=== PATIENT | female | born 1970 | race Caucasian/White ===

== ENCOUNTER → 2016-11-29 | Outpatient (CLI) | payer OTHER ==
[~2016-11-29] MED LIST: AMBIEN10 MG PO; CLEOCIN HCL300 MG PO; CUBICIN (NON-F500 MG IV; DILAUDID 4MG4 MG; EFFEXOR XR75 MG PO; FLORASTOR250 MG PO; NIFEREX-150) (150 MG PO; PERCOCET 5-3251 EACH PO; TYLENOL325 MG PO; XANAX0.5 MG PO; ZOLOFT100 MG PO
== END | disposition disaster alternative care site (69) ==
LOC: GRAD 07:57
DX: M54.40 Lumbago with sciatica, unspecified side (principal); M51.26 Other intervertebral disc displacement, lumbar region; M54.5 Low back pain; M48.06 Spinal stenosis, lumbar region; M47.896 Other spondylosis, lumbar region

== ENCOUNTER → 2016-12-04 | Outpatient (CLI) | payer OTHER ==
--- NOTE | ~2016-12-04 | ECHO ---
Transthoracic Echocardiography Report (TTE) Demographics Patient Name JAMEE GUERRERO Date of Study 12/04/2016 Patient Number [id number] Visit Number [id number] Date of 1970 Room Number Gender Female Number Age 46 year(s) Referring Daniel Shawna Brenner MD Hemodialysis Lab Technician Alden T, [facility] Physician Jacqui Physician Interpreting Arcelia Ponce Medical Record Specialist Physician Supervising Ordering Arcelia Ponce MD/MLP Physician Nurse Stress Middleware Administrator Conclusions Summary The estimated left ventricular ejection fraction is 55-60%. Abnormal septal motion due to LBBB. Procedure Type of Study TTE procedure:2D Echocardiogram, M-Mode, Doppler , Color Doppler. Procedure Date Date: 12/04/2016 Start: 03:29 PM Study Location: Echo Lab Technical Quality: Adequate visualization Indications:Pre surgical clearance. Appropriate Use Criteria: 9 Patient Status: Routine HR: 74 bpm BP: 135/72 mmHg M-Mode/2D Measurements LV Diastolic Dimension: 4.58 cm LV Systolic Dimension: 3.19 cm LV Septum Diastolic: 0.85 cm LV PW Diastolic: 0.93 cm AO Root Dimension: 2.1 cm AV Cusp Separation: 1.4 cm RV Diastolic Dimension: 2.41 cm LA Dimension: 3.3 cm LVOT: 1.8 cm RV Base: 2.17 cm RV Mid: 1.97 cm RV Length: 4.8 cm TAPSE: 2.54 cm TDI-S': 16.9 cm/s Doppler Measurements TR Velocity:2.09 m/s TR Gradient:17.47 mmHg PV Peak Velocity: 1.32 m/s Estimated RAP:3 mmHg PV Peak Gradient: 6.97 mmHg Estimated RVSP: 20 mmHg Estimated PASP: 20.47 mmHg Findings Left Ventricle Normal left ventricle size. Abnormal septal motion due to LBBB. Right Ventricle Normal right ventricle structure and function. Left Atrium Normal left atrial size. Right Atrium Normal right atrial size. Mitral Valve Normal mitral valve structure and function. Aortic Valve Normal aortic valve structure and function. Tricuspid Valve Trivial tricuspid regurgitation by color Doppler. Pulmonic Valve Trivial pulmonic valve regurgitation by color Doppler. Pericardial Effusion No evidence of pericardial effusion. Pleural Effusion No evidence of pleural effusion. Contractility Score LV regional wall motion:(0-Non visualized 1-Normal 2-Hypokinesis 3-Akinesis 4-Dyskinesis 5-Aneurysm) Signature dtt: WEI LEAHY dtd: 12/04/16 1529 Physician Self Edit
== END | disposition disaster alternative care site (69) ==
LOC: GCAR 14:51
DX: Z01.818 Encounter for other preprocedural examination (principal); I44.7 Left bundle-branch block, unspecified

== ENCOUNTER 2016-12-06 06:03 | Day surgery (SDC) | payer OTHER ==
[~2016-12-06] VITALS: Ht 154.9 cm; Wt 70.1 kg
--- NOTE | ~2016-12-06 | DS ---
PATIENT'S NAME: JAMEE GUERRERO [facility] AGE: 46 Y [address] ROOM: [address] [address] LOCATION: [facility] ADMIT DATE: 12/06/2016 Discharge Summary DISCHARGE DATE: 12/09/2016 FAMILY PHYSICIAN: Shawna Sanchez MD ATTENDING PHYSICIAN: Deborah Childs REASON FOR ADMISSION: The patient was a scheduled admission for an elective procedure. The procedure was left L5-S1 microdiskectomy. The patient had presented with clinical and radiological findings consistent with a left S1 radiculopathy from a herniated disk. TREATMENT RENDERED: The patient was taken to the operating room on December 06, 2016 and underwent a left L5-S1 microdiskectomy. The procedure was uncomplicated. The patient's postoperative course was uneventful. She had some numbness down her leg, but this improved by the time she was ready for dismissal. She also had some low hemoglobin which was investigated by her primary care provider and will be followed up in the outpatient. Overall, the patient did well and was ready for dismissal by December 09, 2016. She was discharged home on that day with arrangements to follow up in the Neurosurgery Clinic. FINAL DIAGNOSIS: Lumbar disk herniation status post lumbar microdiskectomy. DEBORAH CHILDS MD CNO/modl /[id number] d: 12/14/16 0108 t: 12/16/16 2207, DISCHARGE SUMMARY
--- NOTE | ~2016-12-06 | OR ---
PATIENT'S NAME: JAMEE GUERRERO [facility] AGE: 46 Y [address] ROOM: [address] [place], [place] [address] LOCATION: [facility] ADMIT DATE: 12/06/2016 OR/Procedure Report DISCHARGE DATE: 12/09/2016 FAMILY PHYSICIAN: Shawna Sanchez MD ATTENDING PHYSICIAN: Deborah Childs SURGEON: Deborah Childs MD LAMP SHADE SEWER: Michelle Hollingsworth. DATE OF PROCEDURE: 12/06/2016 PREOPERATIVE DIAGNOSIS: Lumbar disk herniation. POSTOPERATIVE DIAGNOSIS: Lumbar disk herniation. PROCEDURES PERFORMED: 1. Left L5-S1 hemilaminotomy, medial facetectomy, and foraminotomy with diskectomy. 2. Use of operative microscope. ANESTHESIA: General. ANESTHESIA PROVIDER: Amadou Wood M.D. HISTORY: The patient is a 46-year-old female with complaints of lower back and left leg pain. MRI showed a large left L5-S1 disk herniation. The patient had had a right L5-S1 disk herniation with diskectomy 2 years ago. With the return of her symptoms on the left side, imaging studies were done and it showed another large disk herniation at this time on the left side. Given the large size of the disk, the decreased left ankle jerk, and the level of the patient's pain, surgery was recommended. The above procedure, benefits, and risks were discussed with the patient; and with her consent, she was brought to the operating room for surgery. We briefly talked about the need for spinal fusion, but I felt that the diskectomy would be sufficient in itself to remove the patient's pain without having to sacrifice the disk segments. PROCEDURE IN DETAIL: In the operating room, the patient was placed in a supine position. Anesthesia was induced. She was intubated. She was then rolled to a prone position on a Migue table taking care to protect all pressure points. The incision was marked out corresponding to the previous incision used for her right L5-S1 diskectomy. Self-retaining retractors were placed. The paraspinous muscles were dissected off the spinous processes of L5 and S1 vertebrae bilaterally. Self-retaining retractors were placed. We could see where the hemilaminotomy had been performed on the right side, but this time we were working on the left side. Intraoperative x-ray was obtained to confirm our level. PATIENT'S NAME: JAMEE GUERRERO [facility] AGE: 46 Y [address] ROOM: [facility] [place], [place] [address] LOCATION: [facility] ADMIT DATE: 12/06/2016 OR/Procedure Report DISCHARGE DATE: 12/09/2016 FAMILY PHYSICIAN: Shawna Sanchez MD ATTENDING PHYSICIAN: Deborah Childs The adjacent edges of the left L5 and S1 laminae were trimmed down with Kerrison rongeur and drill. The medial facet was also drilled down. The ligamentum flavum was carefully removed. The microscope was brought in at this point and under microscopic vision, the epidural space was explored. The disk was in the axilla of the left S1 nerve root, i.e., on the medial side of the nerve rather than on the lateral side of the nerve as is more usually the case. Working very carefully, the disk was incised in the axilla of the nerve and disk material was removed. After a few sizable pieces of disk had been removed, it was then possible to mobilize the nerve root towards the midline and work on the shoulder of the nerve where some of the disk herniation was also present. Further disk was removed from the shoulder of the nerve. The down-pushing curette was used to push down disk material into the disk space. The pituitary rongeur was used to remove the disk. Diskectomy continued until the nerve root could be seen completely free all around. Foraminotomy was also performed to ensure that there was no narrowing of the foramen and the nerve root exited. Having completed the diskectomy, the edges of the laminectomy were waxed with bone wax. Hemostasis was achieved. Irrigation was used to wash out the debris. Ropivacaine was placed in the epidural space. The incision was closed in layers using appropriate suture materials. A sterile dressing was applied. The patient was rolled back to supine position. Her anesthesia was reversed. She was extubated and taken to the recovery room to complete her recovery. I was present at and performed every aspect of this procedure, assisted at some stages by operating room nurses. There were no apparent intraoperative complications. Swabs, needles, and instruments were all accounted for at the end of the case. Estimated blood loss was less than 50 mL. There was no reason for blood transfusion. I expect the patient to benefit immensely from this procedure. MD HÉCTOR EDWARDS/leandro /[id number] d: 12/13/162215 t: 12/16/16 2204, OPERATIVE SUMMARY
[~2016-12-06 06:03] MED LIST changes: -CLEOCIN HCL300 MG PO; -CUBICIN (NON-F500 MG IV; -FLORASTOR250 MG PO; -NIFEREX-150) (150 MG PO; -TYLENOL325 MG PO
[2016-12-08 05:31] LABS: HEMATOCRIT 27.3 % (33.0-46.0); HEMOGLOBIN 8.7 g/dL (10.0-15.0)
[2016-12-09 08:29] LABS: HEMATOCRIT 28.8 % (33.0-46.0); HEMOGLOBIN 9.3 g/dL (10.0-15.0)
== END 2016-12-09 17:45 | disposition disaster alternative care site (69) ==
LOC: G3N 06:03 → GSDC 06:03 → UNDOADMIN 06:03 → G3N 11:30 → EDSTATUS 15:00 → G3N 12-09 17:45 → GSDC 12-09 17:45
PROVIDERS: Family Medicine; Neurological Surgery
PROC: 0SB20ZZ Excision of Lumbar Vertebral Disc, Open Approach (ICD-10-PCS; principal; 2016-12-06)
PROC: 01NB0ZZ Release Lumbar Nerve, Open Approach (ICD-10-PCS; 2016-12-06)
DX: M51.17 Intervertebral disc disorders with radiculopathy, lumbosacral region (principal); M48.07 Spinal stenosis, lumbosacral region; Z87.19 Personal history of other diseases of the digestive system; Z98.890 Other specified postprocedural states
CPT/HCPCS: J0690; J1100; J1170; J2001; J2250; J2405; J2795; J3010; J7030; J7120

== ENCOUNTER 2016-12-18 22:02 | Inpatient (IN) | payer OTHER ==
[~2016-12-18] VITALS: Ht 154.9 cm; Wt 68.7 kg
--- NOTE | ~2016-12-18 | OR ---
PATIENT'S NAME: JAMEE GUERRERO [facility] AGE: 46 Y [address] ROOM: [place] [address] [place] [facility] [place]: 12/18/2016 OR/Procedure Report DISCHARGE DATE: FAMILY PHYSICIAN: Shawna Sanchez MD ATTENDING PHYSICIAN: Deborah Childs SURGEON: Darrel Montalvo MD CLINICAL DOCUMENT IMPROVEMENT EDUCATOR: DATE OF PROCEDURE: 12/24/2016 PREOPERATIVE DIAGNOSES: 1. Anemia. 2. History of gastric ulcers. POSTOPERATIVE DIAGNOSIS: Small area of submucosal swelling in the antrum, otherwise normal scope. PROCEDURE PERFORMED: EGD. ANESTHESIA: MAC. SPECIMEN: None. REASON FOR PROCEDURE: The patient is a 46-year-old female, who has a remote history of gastric ulcers. She has been profoundly anemic recently with some mild drop in hemoglobin. She has also been dealing with some chronic back issues. Hemoccults were negative. An upper endoscopy was requested. FINDINGS: Overall, things look quite normal. There is a couple of centimeter area in the antrum that there seemed to be some submucosal swelling. This did flatten out some with full insufflation, but did not completely resolve. It looked like maybe there was some scarring from a healed ulcer in this area, but nothing that looked like a bleeding source and there was no stigmata of bleed in the stomach. Duodenum was otherwise normal. PROCEDURE IN DETAIL: The patient was taken to the endoscopy suite and placed in the left lateral decubitus position. After appropriate monitors were in place, a bite block was placed between her teeth. Anesthesia provided sedation, the gastroscope was advanced through the bite block and the esophagus was intubated under direct visualization. The esophagus was not dilated. There were no strictures or masses. The GE junction was smooth and regular without evidence of esophagitis. No blood was noted anywhere. Hiatal hernia was not seen. The stomach was insufflated and inspected. There was little green bile in the stomach, but no evidence of new or old blood. There was just a vague nonspecific circular swelling about 2 cm in diameter in the pre-pyloric area. This was more of a submucosal area. Overall, the mucosa PATIENT'S NAME: JAMEE GUERRERO [facility] AGE: 46 Y [address] ROOM: [place] [id number] [place] [facility] [place] DATE: 12/18/2016 OR/Procedure Report DISCHARGE DATE: FAMILY PHYSICIAN: Shawna Sanchez MD ATTENDING PHYSICIAN: Deborah Childs overlying this spot seemed normal. There was a little bit of scarring that may have been a previous healed ulcer, but nothing that really stood out. This did seem to flatten out somewhat as we continue to insufflate, but did not completely go away. I did photograph the area. The port channels as well as the first, second, and third portions of the duodenum were all normal. The scope was withdrawn back in the stomach and retroflexed. The scope was then gradually withdrawn. POSTPROCEDURE PLAN: The patient will be discharged home when awake and alert. I did not see any evidence of bleeding in the stomach or anything to account for her chronic anemia. She did have this unusual swelling area, but it did not really seem to be anything of clinical significance to me. I think with the amount of stress she is under with her back though and her previous history of ulcers, I would keep her on some acid suppression therapy for the time being. We will continue to follow the anemia. This may be related to other issues. She may want to consider a colonoscopy when she has fully recovered from the back problems. MD SANDRA GREGORY/leandro /[id number] d: 12/24/16 1249 t: 12/30/16 1716, OPERATIVE SUMMARY
--- NOTE | ~2016-12-18 | DS ---
PATIENT'S NAME: JAMEE GUERRERO [facility] AGE: 46 Y [address] ROOM: [place] [address] LOCATION: [facility] [place] ADMIT DATE: 12/18/2016 Discharge Summary DISCHARGE DATE: 12/28/2016 FAMILY PHYSICIAN: Shawna Sanchez MD ATTENDING PHYSICIAN: Deborah Childs REASON FOR ADMISSION: The patient was seen in the emergency room on December 18, 2016 with wound infection. The patient has had a left L5-S1 microdiskectomy on December 06, 2016, and was doing well until a few days before her re-admission when she noticed that the wound appeared to be infected. On examination, the incision was reddened and swollen, and there were a couple of hairs extracted from the incision itself. The patient also had an elevated white count and high temperature, and generally looked unwell. TREATMENT RENDERED: The patient was taken to the operating room on the night of her admission to hospital, and underwent incision and drainage of her wound. The procedure was uneventful. She was started on antibiotics per direction by Infectious Diseases team. The wound later grew MRSA, and the antibiotics were adjusted to cover this infection. While in hospital, the patient was found to be anemic as she had already presented with low hemoglobin even before the hospitalization, and was being scheduled for elective investigation to find out the cause of this. We, therefore, took advantage of her being in hospital and expedited the investigations. She was seen by Dr. Montalvo, who performed endoscopy and really did not see any specific source of the bleeding. The patient was also seen by [employer]PATCHER, Dr. Yang, and Dr. Yang recommended that the patient be seen in the office to perform endometrial biopsy. The appointment for this has been scheduled. Her incision continued to improve, and her pain got better. By the 28 of December, she was well enough to be discharged, and was discharged home on that day. At this time, her wound was just about completely healed, and her pain was well controlled. FINAL DIAGNOSES: 1. Lumbar wound infection. 2. Anemia. PATIENT'S NAME: JAMEE GUERRERO [facility] AGE: 46 Y [address] ROOM: [place] [address] LOCATION: [facility] [place] ADMIT DATE: 12/18/2016 Discharge Summary DISCHARGE DATE: 12/28/2016 FAMILY PHYSICIAN: Shawna Sanchez MD ATTENDING PHYSICIAN: Deborah Childs MD CNO/modl /[id number] CC: Shawna Sanchez MD d: 01/06/17 0412 t: 01/07/17 1931, DISCHARGE SUMMARY
--- NOTE | ~2016-12-18 | ER ---
PATIENT'S NAME: JAMEE GUERRERO [facility] AGE: 46 Y [address] ROOM: [place] [address] [place] [facility] DATE: 12/18/2016 ER/Outpatient Report DISCHARGE DATE: FAMILY PHYSICIAN: Shawna Sanchez MD ATTENDING PHYSICIAN: Deborah Childs Time of Arrival: 2204 hours. Time of Evaluation: 2215 hours. CHIEF COMPLAINT: Surgical wound infection. HISTORY OF PRESENT ILLNESS: This is a 46-year-old female who presents to the ER with her who states she is not feeling well. The patient had a diskectomy done by Dr. Childs on December 06. She states she had been doing okay, was having some pain but was trying to tough it out. She has then noticed that her incision site was red, so she went to be seen by her primary care physician Dr. Sanchez. Dr. Sanchez did contact Dr. Childs today. They did start her on clindamycin and she did have one dose of that. She states her symptoms have worsened this evening. She started having fever or chills. She has felt nauseated. She does not know if she has been having any drainage out of her incision site, but it is very tender to palpate. She denies any cough. No chest pain. No shortness of breath. No diarrhea. No headache. She just feels achy all over her body. She does have some left-sided numbness to the back of her leg post surgery, but she states that she is having some pain in her posterior calf of her left leg and that she did have that evaluated done at [facility] today. They did a Doppler of her leg which was negative. ALLERGIES: NO KNOWN ALLERGIES. MEDICATIONS: Please see medication list in nurse's notes. PAST MEDICAL HISTORY: Anxiety, depression. PAST SURGICAL HISTORY: Diskectomy. SOCIAL HISTORY: Denies smoking, drug, or alcohol use. REVIEW OF SYSTEMS: PATIENT'S NAME: JAMEE GUERRERO [facility] AGE: 46 Y [address] ROOM: [place] [address] [place] [facility] DATE: 12/18/2016 ER/Outpatient Report DISCHARGE DATE: FAMILY PHYSICIAN: Shawna Sanchez MD ATTENDING PHYSICIAN: Deborah Childs All systems were reviewed and were negative with the exception of those discussed in the HPI. PHYSICAL EXAMINATION: VITAL SIGNS: Height 5 feet 1 inch stated, weight 69.4 kg taken, blood pressure is 149/62, pulse 117, respirations 16, temperature 101.7 degrees tympanically, saturations 95% on room air. Hemant Coma Score is 15. GENERAL: Alert, calm, well-developed female, in mild to moderate distress. HEENT: Head: Normocephalic. She does display moist mucous membranes. Eyes: Pupils were equal and reactive to light. NECK: Supple. No lymphadenopathy. LUNGS: Clear to auscultation bilaterally. HEART: Tachycardic. Normal rhythm. ABDOMEN: Soft, it is nontender. She has good bowel sounds throughout. EXTREMITIES: No clubbing or cyanosis. She does have her normal range of motion of her upper and lower extremities. SKIN: She has an incision to her lumbar spine. There is erythema around the incision site. The suture lines do have a little bit of dried purulent drainage around them. There is some slight induration to the posterior aspect of the incision. It is very tender to palpate. It is slightly warm to palpate as well. NEURO: Cranial nerves 2 through 12 grossly intact. Gait is steady without assistance. LABORATORY DATA: CBC: White count is 19.1, hemoglobin is 10.8, platelets 388, ANC is 15.6, sedimentation rate is 65. CMS: Sodium 135, potassium 3.8, BUN 5, creatinine 0.9, glucose is 111, CRP is 16, lactate is 1.2, procalcitonin is less than 0.05. Urinalysis is negative for any infection. She does have trace of blood in her urine. IMPRESSION: Systemic inflammatory response syndrome secondary to postop wound infection. ASSESSMENT AND PLAN: I did speak with Dr. Ayers. We did start an IV and did obtain two sets of blood cultures on the patient. We did start normal saline at 30 mL/kg here in the emergency room. We gave her 25 mcg of fentanyl x2 here in the emergency room for her discomfort. Dr. Childs also obtained wound cultures of the incision site prior to admission to the hospital. I did speak with Dr. Martinez regarding the patient and I also spoke with Dr. Childs. Dr. Childs will be coming in to evaluate the patient and he will be assuming the patient's care at this time for admission to the hospital. The patient and patient's understand and agrees with care. PATIENT'S NAME: JAMEE GUERRERO [facility] AGE: 46 Y [address] ROOM: [place] [address] LOC[place] [facility]MIT DATE: 12/18/2016 ER/Outpatient Report DISCHARGE DATE: FAMILY PHYSICIAN: Shawna Sanchez MD ATTENDING PHYSICIAN: Deborah Childs N FELIPE BALLARD PA-C FOR MD EYNY HYDE/modl /[id number] d: 12/19/16 0110 t: 01/01/17 1817, OUTPATIENT REPORT
--- NOTE | ~2016-12-18 | CON ---
PATIENT'S NAME: VANNESA GUERRERO [facility] AGE: 46 Y [address] ROOM: [place] [address] [place] [facility] [place]: 12/18/2016 Consultation DISCHARGE DATE: FAMILY PHYSICIAN: Shawna Sanchez MD ATTENDING PHYSICIAN: Deborah Childs DATE OF CONSULTATION: 12/23/2016 REFERRING PHYSICIAN: Deborah Childs MD REASON FOR CONSULTATION: Anemia. HISTORY OF PRESENT ILLNESS: Vannesa Guerrero is a 46-year-old female who underwent a L5-S1 microdiskectomy on December 06, 2016. The patient was released home but then was readmitted on December 18 with a postoperative wound infection. The patient's hemoglobin today is 7.4. Dr. Childs requested a general surgery consultation for possible EGD as an inpatient. The patient states that her appetite has not been good for about one month. She denies any specific pain or nausea. No difficulty eating. The patient states that she did take some nonsteroidal anti-inflammatory drugs a few months ago for some leg pain, but has not taken any in the postoperative period. Denies any history of H pylori. She does have a history of a bleeding ulcer diagnosed in either 2006 or 2007. She states that she was not taking nonsteroidal anti-inflammatory drugs at that time and does not recall a diagnosis of H pylori. She states that she took medications for approximately one month and did not have any followup after that. This was all done on an outpatient basis. The patient denies any blood in her stools at this time. Denies any dark tarry stools. Does not consume alcohol. She is a nonsmoker. The patient was seen by Dr. Sanchez on December 18, prior to her admission. Dr. Sanchez has the patient scheduled for an EGD and colonoscopy on Friday, December 25. PAST MEDICAL HISTORY: Allergies none. MEDICATIONS: 1. Percocet. 2. Zoloft. 3. Ambien. 4. Cleocin. ILLNESSES: Include depression, history of peptic ulcer disease. PATIENT'S NAME: VANNESA GUERRERO [facility] AGE: 46 Y [address] ROOM: [place] [address] [place] [facility] [place]: 12/18/2016 Consultation DISCHARGE DATE: FAMILY PHYSICIAN: Shawna Sanchez MD ATTENDING PHYSICIAN: Deborah Childs OPERATIONS: Include the L5-S1 microdiskectomy, , tubal ligation. FAMILY HISTORY: Father with heart disease. SOCIAL HISTORY: The patient lives in [place]. She is a nonsmoker and does not consume alcohol. REVIEW OF SYSTEMS: The patient denies any recent coughs or colds. No shortness of breath or chest pain. Her urine stream has been fine. PHYSICAL EXAMINATION: VITAL SIGNS: Temperature is 98.3, blood pressure 140/66, pulse 75, respirations 16. GENERAL: A 46-year-old female who is alert in bed, although she did recently receive some Dilaudid. Her answers to questions are somewhat vague. She is in no acute distress. EYES, EARS, NOSE, AND THROAT: Grossly normal. LUNGS: Clear. HEART: Regular. ABDOMEN: Soft and nontender. She has a scar at the umbilicus from her tubal ligation. No masses are appreciated. LAB WORK: 1. CMP shows sodium 139, potassium 3.8, chloride 105, glucose 83, BUN 5, creatinine 0.7, total bilirubin 0.4, alkaline phosphatase 107, AST 14, ALT 18, TSH 2.080, phosphorus 3.8, magnesium 2.1. White blood cell count 5.4, hemoglobin 7.4, hematocrit 23.3, MCV was 84.4, platelets 301. Occult blood has been negative x3. Wound cultures are showing MRSA from the incision on her back. Blood cultures have been negative. Review of hemoglobin, the patient was 8.7 on December 08 and was up to 10.8 on December 18, was back down to 7.4 on December 21 and is again 7.4 today. ASSESSMENT: A 46-year-old female with anemia. 1. History of peptic ulcer disease in 2006. 2. Status post microdiskectomy with postoperative wound infection with MRSA. PLAN: 1. I will discuss this patient with Dr. Montalvo momentarily. I discussed with the patient that Dr. Childs had requested an EGD. The patient was in PATIENT'S NAME: VANNESA GUERRERO [facility] AGE: 46 Y [address] ROOM: [place] [address] [place] [facility] [place]: 12/18/2016 Consultation DISCHARGE DATE: FAMILY PHYSICIAN: Shawna Sanchez MD ATTENDING PHYSICIAN: Deborah Childs understanding and agreement with this. She did prefer to have this done as an inpatient if possible versus being discharged home with return in a few days for the scheduled outpatient procedure. Again, I will discuss this further with Dr. Montalvo and arrangements will be made accordingly per his recommendations. Dr. Montalvo is involved in assessment and plan and is available for supervision. CAILIN HALL PA-C FOR YONNY MONTALVO MD KDK/leandro /[id number] d: 12/23/16 1241 t: 12/30/16 1719, CONSULTATION REPORT
--- NOTE | ~2016-12-18 | HP ---
PATIENT'S NAME: VANNESA GUERRERO [facility] AGE: 46 Y [address] ROOM: [place] [address] LOCATION: [facility] [place]MIT DATE: 12/18/2016 History & Physical DISCHARGE DATE: FAMILY PHYSICIAN: Shawna Sanchez MD ATTENDING PHYSICIAN: Deborah Last DATE OF SERVICE: 12/18/2016 PATIENT IDENTIFICATION: Vannesa Guerrero is a 46-year-old female. PRESENTING COMPLAINTS: Fever and pain at the incision site. HISTORY OF PRESENT ILLNESS: The patient underwent a left L5-S1 microdiskectomy on 12/06/2016. She did well and was released home, but in the last couple of days has noticed pain around the incision. The pain goes out to the right buttock area. The patient presented at her primary care provider's office today for workup regarding anemia. The primary care provider noticed that incision looked angry. She, therefore, recommended that the patient should come and see me. The patient already had a followup appointment next week. We started her on antibiotics. This evening, however, the fever got worse and the pain increased. The patient, therefore, came to the emergency room and I was consulted to see her. PAST MEDICAL HISTORY: Significant for prior right L5-S1 diskectomy performed 2 years ago. The patient had a recurrence of disk herniation and had repeat surgery just on the 12/06/2016. CURRENT MEDICATIONS: 1. Oxycodone. 2. Zolpidem. 3. Sertraline. 4. Clindamycin. ALLERGIES: NO KNOWN DRUG ALLERGIES. REVIEW OF SYSTEMS: All systems were reviewed. The only abnormal findings are documented in the history of present illness. FAMILY HISTORY: PATIENT'S NAME: VANNESA GUERRERO [facility] AGE: 46 Y [address] ROOM: [place] [address] LOCATION: [facility] [place]MIT DATE: 12/18/2016 History & Physical DISCHARGE DATE: FAMILY PHYSICIAN: Shawna Sanchez MD ATTENDING PHYSICIAN: Deborah Last No family history relevant to present illness. SOCIAL HISTORY: The patient is . She is a nonsmoker and a nondrinker. PHYSICAL EXAMINATION: GENERAL: On examination, the patient is a young female who appears on well. VITAL SIGNS: Blood pressure is 149/63, pulse rate is 112. NEUROLOGIC: Her speech is normal. Cranial nerves, no deficits seen. Motor examination, the patient has normal strength in all her extremities. She is able to ambulate independently. CARDIOVASCULAR: Heart sounds present. RESPIRATORY: The patient is not short of breath at bedside. EXTREMITIES: No cyanosis or clubbing. HEENT: Her head is atraumatic. Eyes and ears, no evidence of trauma. SKIN: The skin on her back around the incision looks a little bit swollen and red. At the bottom end of the incision, there is some moistness, but no heath drainage. Three strands of hair were extracted from the incision. The sutures are still intact. LABORATORY INVESTIGATIONS: The patient's white count is 19.1. Her ESR is 65. C-reactive protein is 16. Procalcitonin is less than 0.05. Sodium 135, potassium 3.8, glucose 111. ASSESSMENT: The patient is a 46-year-old female with clinical and biochemical markers consistent with infection. The likely source of the infection is recent surgical wound. MEDICAL DECISION MAKING: I reviewed the situation with the patient and I feel the safest course of action will be incision and drainage of this wound. At least, the wound needs to be explored and washed out. This will reduce the risk of the infection spreading and make it easier to treat while it is still in its early stages. The patient understands this line of thinking and will proceed with surgery later on tonight. The patient to be started on antibiotics after the procedure. DEBORAH LAST MD PATIENT'S NAME: VANNESA GUERRERO [facility] AGE: 46 Y [address] ROOM: [place] [address] LOCATION: [facility] [place] ADMIT DATE: 12/18/2016 History & Physical DISCHARGE DATE: FAMILY PHYSICIAN: Shawna Sanchez MD ATTENDING PHYSICIAN: Deborah Last/leandro /[id number] D: 2 73 HISTORY & PHYSICAL
--- NOTE | ~2016-12-18 | CON ---
PATIENT'S NAME: JAMEE GUERRERO [facility] AGE: 46 Y [address] ROOM: [place] [id number] [place] [facility] [place]: 12/18/2016 Consultation DISCHARGE DATE: FAMILY PHYSICIAN: Shawna Sanchez MD ATTENDING PHYSICIAN: Deborah Childs CHIEF COMPLAINT AND REASON FOR CONSULTATION: Sepsis secondary to cellulitis with abscess of surgical incision site of the lumbar spine. HISTORY OF PRESENT ILLNESS: This is a 46-year-old female with a recent left L5-S1 microdiskectomy done on 12/06/2016 presents with an increasing lower back pain, erythema, and swelling of surgical incision site. The patient also complained of subjective fever and chills and generalized myalgias during this time. The patient also reported numbness and tingling of her lower extremities which has been going on throughout the course of problems with her lower back. The patient today tells me that she has symptoms of fever, chills, and sensation of feeling cold. She does also report some nausea but no vomiting. No diarrhea or constipation as well. The patient otherwise denies any chest pain, shortness of breath, dizziness, lightheadedness, dysuria, frequency of urination, cough, or any chest symptoms overall. Also denies any new symptoms including weakness, numbness, or tingling of her extremities developed recently. PAST MEDICAL HISTORY: History of right L5-S1 diskectomy, performed about 2 years ago. She has a history of depression. FAMILY HISTORY: The patient has history of heart disease in her father. 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 She is a nonsmoker and no significant history of drinking. REVIEW OF SYSTEMS: All systems have been reviewed and were all negative except as described in the HPI. PHYSICAL EXAMINATION: VITAL SIGNS: Blood pressure 113/64, heart rate 119, respiratory rate 16, temperature max 100.7. GENERAL: The patient is awake, alert, and oriented x3, in no acute distress. HEENT: Moist mucous membranes. No scleral icterus. Conjunctival pallor noted. SKIN: Mild erythema around the lower back incision site noted. Wound looks PATIENT'S NAME: JAMEE GUERRERO [facility] AGE: 46 Y [address] ROOM: [place] [address] [place] [facility] [place] DATE: 12/18/2016 Consultation DISCHARGE DATE: FAMILY PHYSICIAN: Shawna Sanchez MD ATTENDING PHYSICIAN: Deborah Childs clean, dry, and intact otherwise. CHEST: Clear to auscultation bilaterally. HEART: S1 and S2. Regular rate and rhythm. Tachycardic. ABDOMEN: Soft, nontender, nondistended. Positive bowel sounds. MUSCULOSKELETAL: Tenderness noted to the lower back around the surgical incision site. No other joint effusion, redness, or erythema noted. NEUROLOGIC: Nonfocal without any appreciable unilateral weakness, numbness, or tingling. EXTREMITIES: Without edema. ASSESSMENT AND PLAN: 1. Sepsis secondary to cellulitis with abscess of the surgical incision site of lumbar spine from recent microdiskectomy that was done in late November 2016. The patient is tachycardic and febrile. I will give her a fluid bolus equivalent to 30 mL/kg. Also we will get a lactic acid level now and routine level every hour and then reassess response. 2. The patient is on broad-spectrum antibiotics with vancomycin and Zosyn. Initial wound culture site growing heavy Staph aureus but noting that this is healthcare related infection. We will continue antipseudomonal coverage with Zosyn for now and wait until her fever curve improves and narrow antibiotics once final culture results are available. Blood culture results are negative so far. If she continues to spike fevers, it would be reasonable to get an MRI of the back to check for any bony involvement. 3. Cellulitis with abscess of the surgical incision site of the lumbar spine status post incision and drainage. Management as above. 4. Depression. Continue her home medications as it is. 5. Deep vein thrombosis prophylaxis. SCDs and it will be appropriate to be on Lovenox if okay with Neurosurgery. MD PATRIA COHEN/leandro /[id number] d: 12/20/16 1645 t: 12/22/161999, CONSULTATION REPORT
--- NOTE | ~2016-12-18 | OR ---
PATIENT'S NAME: JAMEE GUERRERO [facility] AGE: 46 Y [address] ROOM: [address] [address] [place] [facility] [place]: 12/18/2016 OR/Procedure Report DISCHARGE DATE: FAMILY PHYSICIAN: Shawna Sanchez MD ATTENDING PHYSICIAN: Deborah Childs SURGEON: Deborah Childs MD PROGRAM DIRECTOR CABLE TELEVISION: Moe Rojas CST. DATE OF PROCEDURE: 12/19/2016 PREOPERATIVE DIAGNOSIS: Lumbar wound infection. POSTOPERATIVE DIAGNOSIS: Lumbar wound infection. PROCEDURE PERFORMED: Incision and drainage of lumbar wound infection. ANESTHESIA: General. ANESTHESIA PROVIDER: Radha Laughlin CRNA. HISTORY: This patient is a 46-year-old female who had left L5-S1 microdiskectomy on December 06, 2016. She did well and was discharged home. A couple of days later, she presented back to the ER on December 18, 2016, with pain around the incision. She also had fever and chills. On examination, there was some drainage from the incision and there was concern for wound infection. I therefore recommended incision and drainage of the wound. The procedure, benefits, and risks were discussed with the patient and significant other and with their consent, the patient was brought to the operating room for surgery. PROCEDURE IN DETAIL: In the operating room, the patient was placed in a supine position. Anesthesia was induced and she was intubated. She was then rolled to a prone position on a Migue table taking care to protect all pressure points. The whole area of her lumbar incision was prepped and draped in a sterile fashion. The incision was then reopened. The old stitches were removed. There was purulent collection at the caudal end of the incision. Cultures were taken. The incision was then explored all the way down to the epidural space. The dura and nearby nerve roots were inspected and all the material around them was removed. The incision was then copiously irrigated. Hemostasis was achieved. The incision was closed in layers using appropriate suture materials. A sterile dressing was applied. The patient was then rolled back to a supine position. Her anesthesia was reversed. She was extubated and taken back to the recovery room to complete her recovery. I was present at and performed every aspect of this procedure, assisted at some stages by the operating room nurses. There were no apparent intraoperative complications. Swabs, needles, and instruments were all accounted for at the PATIENT'S NAME: JAMEE GUERRERO [facility] AGE: 46 Y [address] ROOM: [place] [address] [place] [facility] [place]: 12/18/2016 OR/Procedure Report DISCHARGE DATE: FAMILY PHYSICIAN: Shawna Sanchez MD ATTENDING PHYSICIAN: Deborah Childs end of the case. Estimated blood loss was less than 100 mL and there was no reason for blood transfusion. I expect the patient to feel better after this procedure. MD HÉCTOR EDWARDS/seblel /[id number] d: 12/25/16 1512 t: 12/27/16 1246, OPERATIVE SUMMARY
--- NOTE | ~2016-12-18 | CON ---
PATIENT'S NAME: JAMEE GUERRERO [facility] AGE: 46 Y [address] ROOM: [place] [address] [place] [facility] [place]: 12/18/2016 Consultation DISCHARGE DATE: FAMILY PHYSICIAN: Shawna Sanchez MD ATTENDING PHYSICIAN: Deborah Childs DATE OF CONSULTATION: 12/25/2016 REFERRING PHYSICIAN: ELADIO YANG MD REFERRING PHYSICIAN: Dr. Childs. CONSULTING PHYSICIAN: Eladio Yang MD. REASON FOR CONSULTATION: Anemia. HISTORY OF PRESENT ILLNESS: The patient is a 46-year-old G4, P3-0-1-3, who is admitted secondary to surgical site infection. She underwent a diskectomy with Dr. Childs on December 06 and was discharged home without complications, but then was at her primary care physician who noticed an infection of the surgical site. She then was admitted by Dr. Childs and underwent an incision and drainage. Since admission, the patient's hemoglobin is noted to be low. Prior to surgery, it was also low, but has had a significant drop. The patient reports that she has monthly regular periods. The first 2 days are heavy, requiring super tampon and overnight pads were soaking through. At times, her periods have been this way for as long as she can remember, and she has had no recent changes. Her last period was last week some time. It was heavy for 2 days and then tapered off. She did have an acute episode of bleeding yesterday when she was vomiting where she passed a blood clot but has had no bleeding since that time. The patient cannot remember her last Pap smear date. PAST MEDICAL HISTORY: Chronic anemia. PAST SURGICAL HISTORY: Diskectomy x2. MEDICATIONS AT HOME: 1. Ambien. 2. Zoloft. 3. Percocet. 4. Iron. PATIENT'S NAME: JAMEE GUERRERO [facility] AGE: 46 Y [address] ROOM: [place] [address] [place] [facility] [place]: 12/18/2016 Consultation DISCHARGE DATE: FAMILY PHYSICIAN: Shawna Sanchez MD ATTENDING PHYSICIAN: Deborah Childs ALLERGIES: NONE. FAMILY HISTORY: Noncontributory. FRONT END LOADER OPERATOR HISTORY: The patient is a G4, P3-0-1-3. She has a history 2 vaginal deliveries and 1 section. Her periods are regular as noted above monthly and heavy the first 2 days. She reports a history of an abnormal Pap smear years ago and has not had one for quite some time. SOCIAL HISTORY: No tobacco or alcohol use. She works at [employer]. REVIEW OF SYSTEMS: Negative except as noted in the HPI. PHYSICAL EXAMINATION: VITAL SIGNS: Reviewed and normal. ABDOMEN: Soft and nontender. Uterus nonpalpable. LABORATORY WORK: Hemoglobin today is 7.6. IMAGING DATA: The patient had an ultrasound done that showed uterus of 8 x 6 x 5 cm with a 1 cm endometrial stripe. Ovaries were normal. ASSESSMENT: The patient is a 46-year-old female with abnormal uterine bleeding and chronic anemia. RECOMMENDATIONS: 1. Anemia. The patient has had an EGD yesterday, which was normal. I do recommend she undergo a colonoscopy as well. She does report dark stools, but she is taking iron. Her anemia could be from her bleeding, however, she is not acutely bleeding vaginally. Therefore, I would not start her on any medications at this time. 2. Abnormal uterine bleeding. I do recommend to the patient that she see me in the office, so we could perform an endometrial biopsy to rule out cancer or precancerous causes of her heavy periods. We discussed management of her periods including OCPs, Mirena IUD, endometrial ablation, or hysterectomy. The patient is leaning toward an endometrial PATIENT'S NAME: JAMEE GUERRERO [facility] AGE: 46 Y [address] ROOM: [place] [address] [place] [facility] [place]: 12/18/2016 Consultation DISCHARGE DATE: FAMILY PHYSICIAN: Shawna Sanchez MD ATTENDING PHYSICIAN: Deborah Childs, and I would like to schedule that when she sees me in the office after her endometrial biopsy. MD YULY GARDNER/leandro /[id number] d: 12/25/161941 t: 01/08/17 1340, CONSULTATION REPORT
[2016-12-18 22:43] LABS: BILIRUBIN URINE NEGATIVE (NEGATIVE); BLOOD URINE 150 /UL (NEGATIVE); COLOR URINE YELLOW (YELLOW); GLUCOSE URINE NEGATIVE (NEGATIVE); KETONE URINE NEGATIVE (NEGATIVE); LEUKOCYTES URINE NEGATIVE /UL (NEGATIVE); NITRITE URINE NEGATIVE (NEGATIVE); PROTEIN URINE NEGATIVE (NEGATIVE); SPEC GRAVITY URINE 1.005 (1.003-1.035); TURBIDITY URINE CLEAR (CLEAR); UROBILINOGEN URINE NORMAL (NORMAL)
[2016-12-18 22:52] LABS: BASOPHIL # 0.1 K/uL (0.0-0.2); BASOPHIL % 0.3 %; EOSINOPHIL % 0.1 %; HEMATOCRIT 32.7 % (33.0-46.0); HEMOGLOBIN 10.8 g/dL (10.0-15.0); IMMATURE GRANULOCYTE # 0.1 K/uL (0.0-0.3); IMMATURE GRANULOCYTE % 0.5 %; LYMPHOCYTE % 10.4 %; MCH 27.4 pg (27.0-34.0); MONOCYTE # 1.3 K/uL (0.0-1.0); MONOCYTE % 6.7 %; MPV 10.7 fl (9.4-12.4); NEUTROPHIL # (ANC) 15.6 K/uL (1.8-7.8); NRBC % 0 /100WBC (0-0.00); PLATELET COUNT 388 K/uL (150-450); RBC 3.94 M/uL (3.50-5.50); RDW-CV 13.2 % (11.9-14.6)
[2016-12-18 22:54] LABS: WBC 19.1 K/uL (4.0-11.0)
[2016-12-18 23:07] LABS: BACTERIA URINE NEGATIVE (NEGATIVE); RBC URINE 20-50 #/HPF (NEGATIVE); WBC URINE RARE #/HPF (NEGATIVE)
[2016-12-18 23:09] LABS: ALBUMIN 3.4 gm/dL (3.5-5.0); ANION GAP 11.8 (10.0-19.0); CALCIUM 9.1 mg/dL (8.5-10.5); CREATININE 0.9 mg/dL (0.5-1.1); POTASSIUM 3.8 mMol/L (3.7-5.1); TOTAL BILIRUBIN 0.6 mg/dL (0.0-1.5)
[2016-12-19] MEDS ORDERED: CLEOCIN HCL300 MG PO (01:01)
[2016-12-21 04:27] LABS: BASOPHIL % 0.5 %; EOSINOPHIL # 0.3 K/uL (0.0-0.5); HEMATOCRIT 22.7 % (33.0-46.0); HEMOGLOBIN 7.4 g/dL (10.0-15.0); IMMATURE GRANULOCYTE % 0.3 %; LYMPHOCYTE # 1.8 K/uL (0.8-4.0); MCH 27.5 pg (27.0-34.0); MCHC 32.6 gm/dL (32.0-36.5); MCV 84.4 fl (83.0-98.0); MONOCYTE # 0.3 K/uL (0.0-1.0); MONOCYTE % 5.4 %; NEUTROPHIL # (ANC) 3.8 K/uL (1.8-7.8); NEUTROPHIL % 60.8 %; NRBC % 0 /100WBC (0-0.00); PLATELET COUNT 255 K/uL (150-450); RBC 2.69 M/uL (3.50-5.50); RDW-CV 13.4 % (11.9-14.6); WBC 6.3 K/uL (4.0-11.0)
[2016-12-21 04:39] LABS: ALBUMIN 2.3 gm/dL (3.5-5.0); ANION GAP 11.8 (10.0-19.0); BLOOD UREA NITROGEN 6 mg/dL (6-24); CALCIUM 8.1 mg/dL (8.5-10.5); CHLORIDE 108 mMol/L (96-110); CO2 25 mMol/L (22-32); CREATININE 0.7 mg/dL (0.5-1.1); POTASSIUM 3.8 mMol/L (3.7-5.1); SODIUM 141 mMol/L (135-145)
[2016-12-21 14:49] LABS: HEMATOCRIT 26.8 % (33.0-46.0); HEMOGLOBIN 8.8 g/dL (10.0-15.0)
[2016-12-22 06:24] LABS: ALBUMIN 2.4 gm/dL (3.5-5.0); ANION GAP 10.6 (10.0-19.0); BLOOD UREA NITROGEN 5 mg/dL (6-24); CALCIUM 8.3 mg/dL (8.5-10.5); CHLORIDE 108 mMol/L (96-110); CO2 27 mMol/L (22-32); CREATININE 0.7 mg/dL (0.5-1.1); MAGNESIUM 2.2 mg/dL (1.8-2.6); PHOSPHORUS 3.4 mg/dL (2.5-4.9); POTASSIUM 3.6 mMol/L (3.7-5.1); SODIUM 142 mMol/L (135-145)
[2016-12-22 10:00] LABS: BASOPHIL % 0.8 %; EOSINOPHIL # 0.3 K/uL (0.0-0.5); EOSINOPHIL % 6.3 %; HEMATOCRIT 22.1 % (33.0-46.0); IMMATURE GRANULOCYTE % 0.2 %; LYMPHOCYTE # 1.6 K/uL (0.8-4.0); LYMPHOCYTE % 32.4 %; MCH 27.5 pg (27.0-34.0); MCHC 32.6 gm/dL (32.0-36.5); MCV 84.4 fl (83.0-98.0); MONOCYTE # 0.3 K/uL (0.0-1.0); MONOCYTE % 6.9 %; MPV 10.8 fl (9.4-12.4); NEUTROPHIL # (ANC) 2.6 K/uL (1.8-7.8); NEUTROPHIL % 53.4 %; NRBC % 0 /100WBC (0-0.00); PLATELET COUNT 271 K/uL (150-450); RBC 2.62 M/uL (3.50-5.50); RDW-CV 13.3 % (11.9-14.6); WBC 4.9 K/uL (4.0-11.0)
[2016-12-22 10:04] LABS: HEMOGLOBIN 7.2 g/dL (10.0-15.0)
[2016-12-23 05:52] LABS: BILIRUBIN URINE NEGATIVE (NEGATIVE); BLOOD URINE 250 /UL (NEGATIVE); COLOR URINE YELLOW (YELLOW); GLUCOSE URINE NEGATIVE (NEGATIVE); KETONE URINE NEGATIVE (NEGATIVE); LEUKOCYTES URINE 100 /UL (NEGATIVE); NITRITE URINE NEGATIVE (NEGATIVE); PROTEIN URINE NEGATIVE (NEGATIVE); TURBIDITY URINE 2+ (CLEAR); UROBILINOGEN URINE NORMAL (NORMAL)
[2016-12-23 06:01] LABS: BACTERIA URINE FEW (NEGATIVE); EPITHELIAL URINE 20-50 #/HPF (NEGATIVE); RBC URINE 20-50 #/HPF (NEGATIVE)
[2016-12-23 06:34] LABS: BASOPHIL % 0.7 %; EOSINOPHIL # 0.3 K/uL (0.0-0.5); EOSINOPHIL % 5.9 %; HEMATOCRIT 23.3 % (33.0-46.0); IMMATURE GRANULOCYTE % 0.2 %; LYMPHOCYTE # 1.9 K/uL (0.8-4.0); LYMPHOCYTE % 35.5 %; MCH 26.8 pg (27.0-34.0); MCHC 31.8 gm/dL (32.0-36.5); MCV 84.4 fl (83.0-98.0); MONOCYTE # 0.4 K/uL (0.0-1.0); MONOCYTE % 6.5 %; MPV 10.6 fl (9.4-12.4); NEUTROPHIL # (ANC) 2.8 K/uL (1.8-7.8); NEUTROPHIL % 51.2 %; NRBC % 0 /100WBC (0-0.00); PLATELET COUNT 301 K/uL (150-450); RBC 2.76 M/uL (3.50-5.50); RDW-CV 13.2 % (11.9-14.6); WBC 5.4 K/uL (4.0-11.0)
[2016-12-23 06:35] LABS: HEMOGLOBIN 7.4 g/dL (10.0-15.0)
[2016-12-23 06:52] LABS: ALBUMIN 2.5 gm/dL (3.5-5.0); ALK PHOS 107 IU/L (33-138); ALT 18 IU/L (12-78); ANION GAP 9.8 (10.0-19.0); AST 14 IU/L (10-40); BLOOD UREA NITROGEN 5 mg/dL (6-24); CALCIUM 8.4 mg/dL (8.5-10.5); CHLORIDE 105 mMol/L (96-110); CO2 28 mMol/L (22-32); CREATININE 0.7 mg/dL (0.5-1.1); POTASSIUM 3.8 mMol/L (3.7-5.1); SODIUM 139 mMol/L (135-145); TOTAL PROTEIN 6.1 g/dL (6.0-8.4)
[2016-12-23 06:53] LABS: TOTAL BILIRUBIN 0.4 mg/dL (0.0-1.5)
[2016-12-24 04:49] LABS: ALBUMIN 2.5 gm/dL (3.5-5.0); ANION GAP 9.8 (10.0-19.0); CALCIUM 8.4 mg/dL (8.5-10.5); CREATININE 0.8 mg/dL (0.5-1.1); MAGNESIUM 2.1 mg/dL (1.8-2.6); PHOSPHORUS 4.1 mg/dL (2.5-4.9); POTASSIUM 3.8 mMol/L (3.7-5.1)
[2016-12-24 05:03] LABS: BASOPHIL % 0.7 %; EOSINOPHIL # 0.3 K/uL (0.0-0.5); EOSINOPHIL % 5.6 %; HEMATOCRIT 22.2 % (33.0-46.0); IMMATURE GRANULOCYTE % 0.2 %; LYMPHOCYTE # 1.9 K/uL (0.8-4.0); LYMPHOCYTE % 34.2 %; MCH 27.1 pg (27.0-34.0); MCV 84.7 fl (83.0-98.0); MONOCYTE # 0.4 K/uL (0.0-1.0); MPV 10.7 fl (9.4-12.4); NEUTROPHIL # (ANC) 2.9 K/uL (1.8-7.8); NEUTROPHIL % 52.3 %; NRBC % 0 /100WBC (0-0.00); PLATELET COUNT 288 K/uL (150-450); RBC 2.62 M/uL (3.50-5.50); RDW-CV 13.2 % (11.9-14.6); WBC 5.6 K/uL (4.0-11.0)
[2016-12-24 05:09] LABS: HEMOGLOBIN 7.1 g/dL (10.0-15.0)
[2016-12-25 05:59] LABS: ALBUMIN 2.7 gm/dL (3.5-5.0); ANION GAP 8.7 (10.0-19.0); CALCIUM 8.7 mg/dL (8.5-10.5); CREATININE 0.8 mg/dL (0.5-1.1); MAGNESIUM 2.3 mg/dL (1.8-2.6); PHOSPHORUS 3.3 mg/dL (2.5-4.9); POTASSIUM 3.7 mMol/L (3.7-5.1)
[2016-12-25 06:16] LABS: HEMATOCRIT 23.7 % (33.0-46.0); MCV 83.5 fl (83.0-98.0); MPV 11.2 fl (9.4-12.4); RBC 2.84 M/uL (3.50-5.50); RDW-CV 13.2 % (11.9-14.6); WBC 7.1 K/uL (4.0-11.0)
[2016-12-25 06:19] LABS: HEMOGLOBIN 7.6 g/dL (10.0-15.0); MCH 26.8 pg (27.0-34.0); MCHC 32.1 gm/dL (32.0-36.5); PLATELET COUNT 367 K/uL (150-450)
[2016-12-25 07:01] LABS: BANDED NEUTROPHIL # 0.1 K/uL (0.0-0.1); BANDED NEUTROPHILS % 2 %; LYMPHOCYTE # 2.3 K/uL (0.8-4.0); LYMPHOCYTE % 33 %; MONOCYTE # 0.5 K/uL (0.0-1.0); SEGMENTED NEUTROPHIL # 3.8 K/uL (1.8-7.8); SEGMENTED NEUTROPHIL % 54 %
[2016-12-26 05:39] LABS: ALBUMIN 2.6 gm/dL (3.5-5.0); ANION GAP 9.6 (10.0-19.0); CALCIUM 8.3 mg/dL (8.5-10.5); CREATININE 0.8 mg/dL (0.5-1.1); MAGNESIUM 2.1 mg/dL (1.8-2.6); POTASSIUM 3.6 mMol/L (3.7-5.1)
[2016-12-26 05:41] LABS: BASOPHIL % 0.7 %; EOSINOPHIL # 0.2 K/uL (0.0-0.5); EOSINOPHIL % 4.4 %; HEMATOCRIT 22.3 % (33.0-46.0); IMMATURE GRANULOCYTE % 0.2 %; LYMPHOCYTE # 1.7 K/uL (0.8-4.0); MCH 26.7 pg (27.0-34.0); MCHC 31.4 gm/dL (32.0-36.5); MCV 85.1 fl (83.0-98.0); MONOCYTE # 0.4 K/uL (0.0-1.0); MONOCYTE % 7.7 %; MPV 10.8 fl (9.4-12.4); NRBC % 0 /100WBC (0-0.00); PLATELET COUNT 326 K/uL (150-450); RBC 2.62 M/uL (3.50-5.50); RDW-CV 13.2 % (11.9-14.6); WBC 5.4 K/uL (4.0-11.0)
[2016-12-27 05:13] LABS: ALBUMIN 2.8 gm/dL (3.5-5.0); BLOOD UREA NITROGEN 6 mg/dL (6-24); CALCIUM 8.6 mg/dL (8.5-10.5); CHLORIDE 105 mMol/L (96-110); CO2 30 mMol/L (22-32); CREATININE 0.7 mg/dL (0.5-1.1); MAGNESIUM 2.2 mg/dL (1.8-2.6); PHOSPHORUS 3.7 mg/dL (2.5-4.9); SODIUM 140 mMol/L (135-145)
[2016-12-27 05:16] LABS: BASOPHIL % 0.6 %; EOSINOPHIL # 0.3 K/uL (0.0-0.5); EOSINOPHIL % 4.4 %; HEMATOCRIT 23.8 % (33.0-46.0); IMMATURE GRANULOCYTE % 0.3 %; LYMPHOCYTE % 31.8 %; MCH 27.2 pg (27.0-34.0); MCHC 32.4 gm/dL (32.0-36.5); MCV 84.1 fl (83.0-98.0); MONOCYTE # 0.4 K/uL (0.0-1.0); MONOCYTE % 6.9 %; MPV 10.5 fl (9.4-12.4); NEUTROPHIL # (ANC) 3.6 K/uL (1.8-7.8); NRBC % 0 /100WBC (0-0.00); PLATELET COUNT 354 K/uL (150-450); RBC 2.83 M/uL (3.50-5.50); WBC 6.4 K/uL (4.0-11.0)
[2016-12-27 05:17] LABS: HEMOGLOBIN 7.7 g/dL (10.0-15.0)
[2016-12-27] MEDS ORDERED: NIFEREX-150) (150 MG PO (13:33)
[2016-12-27] MEDS ORDERED: CUBICIN (NON-F500 MG IV (13:33)
[2016-12-27] MEDS ORDERED: FLORASTOR250 MG PO (13:35)
[2016-12-27] MEDS ORDERED: TYLENOL325 MG PO (13:36)
== END 2016-12-28 14:20 | disposition home health service (06) | DRG 862 ==
LOC: GMED 22:02 → GMSU 23:57
PROVIDERS: Family Medicine; Internal Medicine; Nurse Practitioner Family; Physician Assistant Medical; ADMIT Neurological Surgery
PROC: 0H96XZZ Drainage of Back Skin, External Approach (ICD-10-PCS; principal; 2016-12-19)
PROC: 0DJ08ZZ Inspection of Upper Intestinal Tract, Via Natural or Artificial Opening Endoscopic (ICD-10-PCS; 2016-12-24)
DX: T81.4XXA Infection following a procedure, initial encounter (principal); A41.9 Sepsis, unspecified organism; E44.1 Mild protein-calorie malnutrition; L03.90 Cellulitis, unspecified; D50.9 Iron deficiency anemia, unspecified; F32.9 Major depressive disorder, single episode, unspecified; N93.8 Other specified abnormal uterine and vaginal bleeding; R51 Headache; Z87.11 Personal history of peptic ulcer disease
CPT/HCPCS: C1751; C9113; J0878; J1170; J2001; J2175; J2270; J2405; J2543; J2765; J2997; J3010; J3370; J7030; J7040; J7050

== ENCOUNTER → 2017-01-06 | Outpatient (CLI) | payer OTHER ==
[~2017-01-06] MED LIST changes: +CLEOCIN HCL300 MG PO; +CUBICIN (NON-F500 MG IV; +FLORASTOR250 MG PO; +NIFEREX-150) (150 MG PO; +TYLENOL325 MG PO
[2017-01-06 16:48] LABS: BASOPHIL # 0.1 K/uL (0.0-0.2); BASOPHIL % 0.9 %; EOSINOPHIL # 0.1 K/uL (0.0-0.5); HEMOGLOBIN 10.2 g/dL (10.0-15.0); IMMATURE GRANULOCYTE % 0.1 %; LYMPHOCYTE # 1.7 K/uL (0.8-4.0); LYMPHOCYTE % 21.1 %; MCHC 31.7 gm/dL (32.0-36.5); MCV 83.9 fl (83.0-98.0); MONOCYTE # 0.5 K/uL (0.0-1.0); MPV 11.8 fl (9.4-12.4); NEUTROPHIL # (ANC) 5.6 K/uL (1.8-7.8); NEUTROPHIL % 70.9 %; NRBC % 0 /100WBC (0-0.00); PLATELET COUNT 367 K/uL (150-450); RDW-CV 14.2 % (11.9-14.6); WBC 7.9 K/uL (4.0-11.0)
[2017-01-06 16:49] LABS: HEMATOCRIT 32.2 % (33.0-46.0); MCH 26.6 pg (27.0-34.0); RBC 3.84 M/uL (3.50-5.50)
[2017-01-06 17:00] LABS: CREATININE 0.9 mg/dL (0.5-1.1)
== END ==
LOC: LHHL 16:38
PROVIDERS: Internal Medicine Infectious Disease
DX: T81.4XXA Infection following a procedure, initial encounter (principal); B95.62 Methicillin resistant Staphylococcus aureus infection as the cause of diseases classified elsewhere

== ENCOUNTER → 2017-01-14 | Outpatient (CLI) | payer OTHER ==
[2017-01-14 13:45] LABS: BASOPHIL # 0.1 K/uL (0.0-0.2); BASOPHIL % 0.5 %; EOSINOPHIL # 0.2 K/uL (0.0-0.5); EOSINOPHIL % 2.2 %; HEMATOCRIT 33.3 % (33.0-46.0); HEMOGLOBIN 10.5 g/dL (10.0-15.0); IMMATURE GRANULOCYTE % 0.2 %; MCH 26.6 pg (27.0-34.0); MCHC 31.5 gm/dL (32.0-36.5); MCV 84.3 fl (83.0-98.0); MONOCYTE # 0.6 K/uL (0.0-1.0); MONOCYTE % 6.1 %; MPV 11.8 fl (9.4-12.4); NEUTROPHIL # (ANC) 6.3 K/uL (1.8-7.8); NRBC % 0 /100WBC (0-0.00); PLATELET COUNT 253 K/uL (150-450); RBC 3.95 M/uL (3.50-5.50); RDW-CV 15.3 % (11.9-14.6); WBC 9.2 K/uL (4.0-11.0)
[2017-01-14 13:57] LABS: ANION GAP 10.7 (10.0-19.0); CALCIUM 8.7 mg/dL (8.5-10.5); CREATININE 0.9 mg/dL (0.5-1.1); POTASSIUM 3.7 mMol/L (3.7-5.1)
== END ==
LOC: LHHL 13:38
PROVIDERS: Internal Medicine Infectious Disease
DX: T81.4XXA Infection following a procedure, initial encounter (principal); B95.62 Methicillin resistant Staphylococcus aureus infection as the cause of diseases classified elsewhere; Z79.2 Long term (current) use of antibiotics

== ENCOUNTER → 2017-01-20 | Outpatient (CLI) | payer OTHER ==
[2017-01-20 13:01] LABS: BASOPHIL # 0.1 K/uL (0.0-0.2); EOSINOPHIL # 0.2 K/uL (0.0-0.5); EOSINOPHIL % 3.2 %; HEMATOCRIT 33.3 % (33.0-46.0); HEMOGLOBIN 10.4 g/dL (10.0-15.0); IMMATURE GRANULOCYTE % 0.3 %; LYMPHOCYTE # 1.9 K/uL (0.8-4.0); LYMPHOCYTE % 30.3 %; MCH 26.5 pg (27.0-34.0); MCHC 31.2 gm/dL (32.0-36.5); MCV 84.7 fl (83.0-98.0); MONOCYTE # 0.4 K/uL (0.0-1.0); MONOCYTE % 6.1 %; MPV 11.3 fl (9.4-12.4); NEUTROPHIL # (ANC) 3.7 K/uL (1.8-7.8); NEUTROPHIL % 59.1 %; NRBC % 0 /100WBC (0-0.00); PLATELET COUNT 258 K/uL (150-450); RBC 3.93 M/uL (3.50-5.50); RDW-CV 15.1 % (11.9-14.6); WBC 6.2 K/uL (4.0-11.0)
[2017-01-20 13:15] LABS: ANION GAP 11.4 (10.0-19.0); CALCIUM 8.6 mg/dL (8.5-10.5); CREATININE 0.9 mg/dL (0.5-1.1); POTASSIUM 3.4 mMol/L (3.7-5.1)
== END ==
LOC: LHHL 12:56
PROVIDERS: Family Medicine
DX: T81.4XXA Infection following a procedure, initial encounter (principal); B95.62 Methicillin resistant Staphylococcus aureus infection as the cause of diseases classified elsewhere; Z79.2 Long term (current) use of antibiotics